=== PATIENT | male | born 1985 | race American Indian/Alaskan Native ===

== ENCOUNTER 2019-02-17 17:00 | Emergency (ER) | payer SELFPAY ==
[2019-02-17 17:14] VITALS: BP 122/71
--- NOTE | 2019-02-17 17:15 | Event Note ---
ED Screening Note Date of service: 02/17/19 Time: 17:13 ED Screening Note: This is a 33 y.o. M. that presents to the ER with RLE in traction and swelling with pain to lateral ankle. Patient is followed by Orthopedic surgeon at [facility]. He was seen there on Wednesday. States he bumped his foot Wednesday night and increased swelling and pain since. This initial assessment/diagnostic orders/clinical plan/treatment(s) is/are subject to change based on patients health status, clinical progression and re- assessment by fellow clinical providers in the ED. Further treatment and workup at subsequent clinical providers discretion. Patient/guardian urged not to elope from the ED as their condition may be serious if not clinically assessed and managed. Initial orders include:
== END 2019-02-17 19:58 | disposition left against medical advice (07) ==
LOC: ED 17:00
DX: M25.571 Pain in right ankle and joints of right foot (principal); M79.604 Pain in right leg; M79.671 Pain in right foot; Z53.21 Procedure and treatment not carried out due to patient leaving prior to being seen by health care provider

== ENCOUNTER 2022-03-26 21:15 | Emergency (ER) | payer SELFPAY ==
[2022-03-26 21:29] VITALS: BP 139/90
--- NOTE | 2022-03-26 22:50 | XRay Report ---
RIGHT HAND 3 VIEW(S) INDICATION / CLINICAL INFORMATION: INJURY COMPARISON: None available. FINDINGS: BONES / JOINT(S): Subacute appearing fracture at the base of the thumb metacarpal with some external callus formation. Fracture appears intra-articular. No significant arthritis. SOFT TISSUES: No significant abnormality. ADDITIONAL FINDINGS: None. IMPRESSION: 1. Subacute appearing fracture of the base of the thumb metacarpal. Signer Name: Uriel Johns MD Signed: 03/26/2022 10:46 PM Workstation Name: [id number]
[2022-03-27] MEDS ORDERED: HYDROcodone/Acetaminophen 7.5-325MG-15ML ORAL LIQD PO ONE (04:18)
--- NOTE | 2022-03-27 04:24 | Emergency Department Report ---
HPI - General Chief Complaint: Extremity Injury, Upper PUI?: No Time Seen by Provider: 03/27/22 04:15 - HPI HPI: I went in to see the patient at 4:20 AM and there was no one in the room. There is no phone number in his chart. I did not see the patient. Nursing staff is going to try to contact him as I do have a report of a subacute metacarpal fracture. He does need a splint and Ortho follow-up. ED Past Medical Hx - Past Medical History Previous Medical History?: No - Surgical History Past Surgical History?: No Additional Surgical History: Right leg - Social History Smoking Status: Unknown if ever smoked Substance Use Type: Marijuana ED Review of Systems ROS: Stated complaint: POSS RIGHT HAND BROKEN Other details as noted in HPI Physical Exam - Physical Exam Vital Signs: Vital Signs 03/26/22 21:28 Temperature 99.4 F Pulse Rate 102 H Respiratory 18 Rate Blood Pressure 139/90 O2 Sat by Pulse 100 Oximetry ED Course Vital Signs 03/26/22 21:28 Temperature 99.4 F Pulse Rate 102 H Respiratory 18 Rate Blood Pressure 139/90 O2 Sat by Pulse 100 Oximetry Critical care attestation.: If time is entered above; I have spent that time in minutes in the direct care of this critically ill patient, excluding procedure time. ED Disposition Condition: Stable
== END 2022-03-27 04:20 | disposition left against medical advice (07) ==
LOC: ED 21:15
DX: S68.411A Complete traumatic amputation of right hand at wrist level, initial encounter (principal); X58.XXXA Exposure to other specified factors, initial encounter; Y93.89 Activity, other specified; Y92.89 Other specified places as the place of occurrence of the external cause; Y99.8 Other external cause status
CPT/HCPCS: 99282